=== PATIENT | male | born 1955 | race Caucasian/White ===

== ENCOUNTER → 2022-07-17 | Outpatient (CLI) | payer OTHER ==
[~2022-07-17] MED LIST: Ativan1 MG PO; DOXA4 PO; DULO60 PO; GABA300 PO; LAMO100 PO; Naltrexone HCl50 MG PO; OMEP20ER PO; PROC10 PO; SERT50 PO; TAMS.4ER PO; TRAZ100 PO; Vitamin B-150 MG PO
== END | disposition home or self-care (01) ==
LOC: LAB SHORT 10:30 → LAB 10:30
DX: R30.0 Dysuria (principal)
CPT/HCPCS: 87086